=== PATIENT | male | born 1960 | race Caucasian/White ===

== ENCOUNTER 2023-12-23 22:16 | Inpatient (IN) | payer SELFPAY ==
[~2023-12-23] VITALS: Ht 172.7 cm; Wt 75.7 kg
[2023-12-23 23:45] VITALS: O2SAT 97
[2023-12-24] VITALS (19 sets, daily range): BP systolic 135–180; BP diastolic 80–104; PULSE 92–112; RESP 16–20; TEMP 97.6–98.6; O2SAT 94–97
[2023-12-24] MEDS: hydrALAZine 20MG/ML VIAL IM ONE (00:30)
[2023-12-24] MEDS: CEFTRIAXONE 2GM VIAL IVPB SCH (00:36)
[2023-12-24 00:40] LABS: ABG BASE EXCESS -2.5 mmol/L (-2.0-3.0); ABG HCO3 20.9 mmol/L (21.0-28.0); ABG PCO2 31 mmHg (35-48); ABG PH 7.444 (7.350-7.450); CARBON MONOXIDE 0.3 % (0.5-1.5); DEVICE COMMENT RR RN; PO2, ARTERIAL BG 103.7 mmHg (83.0-108.0); VENT MODE, BG 5LNC (ROOM AIR)
[2023-12-24] MEDS ORDERED: POTASSIUM CHLORIDE 20MEQ/100ML 100 ML IV PRN (02:00)
[2023-12-24] MEDS ORDERED: cefTRIAXone 1G VIAL 2 GM in 0.9%NACL 100ML 100 ML IV SCH (02:00)
[2023-12-24] MEDS ORDERED: acetaMINOPHEN 325 MG TAB PO PRN ×2 (02:00)
[2023-12-24] MEDS ORDERED: DEXTROSE 50%-WATER 50 ML DISP.SYRIN IV PRN (02:00)
[2023-12-24] MEDS ORDERED: GLUCAGON 1MG KIT 1 MG ML IM PRN (02:00)
[2023-12-24] MEDS ORDERED: guaiFENesin-DM 200/20MG 10ML PO PRN (02:00)
[2023-12-24] MEDS ORDERED: NITROGLYCERIN 0.4 MG SL TAB SL PRN (02:00)
[2023-12-24] MEDS ORDERED: ONDANSETRON 4MG INJ IV PRN (02:00)
[2023-12-24] MEDS: 0.9%NACL 1000ML 1,000 ML IV SCH (02:05)
[2023-12-24] MEDS: IpraTROPium/alBUTERol SULFATE 3 ML SOLUTION IH SCH (02:26)
[2023-12-24 02:34] LABS: BASOPHILS # (AUTO) 0.05 K/uL (0.00-0.20); BASOPHILS % (AUTO) 0.3 % (0.0-5.0); EOSINOPHILS # (AUTO) 0.04 K/uL (0.00-0.70); EOSINOPHILS % (AUTO) 0.2 % (0.0-8.0); HEMATOCRIT 25.9 % (42-54); IMMATURE GRANULOCYTE ABSOLUTE 0.21 K/uL (0-1); LYMPHOCYTES # (AUTO) 1.9 K/uL (1.0-4.8); LYMPHOCYTES % (AUTO) 11.2 % (21.0-51.0); MEAN CORPUSCULAR HEMOGLOBIN 34.5 pg (27.0-33.0); MEAN CORPUSCULAR HGB CONC 35.5 g/dL (32.0-36.0); MONOCYTES # (AUTO) 1.1 K/uL (0.1-1.0); MONOCYTES % (AUTO) 6.2 % (3.0-13.0); NEUTROPHILS # (AUTO) 13.8 K/uL (1.8-7.7); NEUTROPHILS % (AUTO) 80.9 % (40.0-77.0); PLATELET COUNT (AUTO) 339 K/uL (130-400); RED BLOOD CELL COUNT(AUTO) 2.67 MIL/uL (4.50-6.20); RED CELL DISTRIBUTION WIDTH 12.6 % (11.0-15.5)
[2023-12-24 02:51] LABS: B-TYPE NATRIURETIC PEPTIDE 117 pg/mL (0-100)
[2023-12-24 03:00] LABS: BAND NEUTROPHILS % (MANUAL) 3 % (0-2); LYMPHOCYTES % (MANUAL) 8 % (22-44); MAN.DIFF COMMENT-IMPRESSION MANUAL DIFFERENTIAL; MONOCYTES % (MANUAL) 4 % (2-9); SEGMENTED NEUTROPHILS % 85 % (40-70); TOTAL CELLS COUNTED 100
[2023-12-24 03:01] LABS: WBC MORPHOLOGY T
[2023-12-24 03:08] LABS: ALBUMIN 1.4 g/dL (3.5-5.0); BILIRUBIN,TOTAL 0.4 mg/dL (0.2-1.0); CREATININE 1.2 mg/dL (0.5-1.3); MAGNESIUM 1.3 mg/dL (1.80-2.40); PHOSPHORUS 3.3 mg/dL (2.5-4.9); THYROID STIMULATING HORMONE 0.6 uIU/mL (0.36-3.74); TOTAL PROTEIN, SERUM 5.5 g/dL (6.0-8.3)
[2023-12-24] MEDS: POTASSIUM CHLORIDE 10% ELIXIR 20 MEQ/15 ML UDCUP PO PRN (03:28)
[2023-12-24] MEDS: guaiFENesin SUGAR-FREE 100 MG/5 ML UDCUP PO ONE (03:34)
[2023-12-24] MEDS: guaiFENesin-DM 200/20MG 10ML PO PRN (03:37)
[2023-12-24 03:38] LABS: ERYTHROCYTE SEDIMENTATION RATE 145 MM/HR (0-20)
[2023-12-24] MEDS: AZITHROMYCIN 500MG+NS 250ML 250 ML IV SCH (04:15)
[2023-12-24] MEDS: INSULIN humuLIN R 100 UNIT/ML 3ML SQ SCH (05:52)
[2023-12-24] MEDS: BUDESONIDE 0.5 MG/2 ML INH IH SCH (06:31)
[2023-12-24] MEDS: FAMOTIDINE 20MG TAB PO SCH (09:19)
[2023-12-24] MEDS: ENOXAPARIN SODIUM 30 MG/0.3 ML SQ SCH (09:19)
[2023-12-24] MEDS: MAGNESIUM 2GM PREMIX 50ML 50 ML IV PRN (11:24)
[2023-12-24] MEDS: IBUPROFEN 600 MG TABLET PO PRN (11:42)
[2023-12-24] MEDS: amLODIPine 5 MG TAB PO ONE ×2 (14:00→16:06)
[2023-12-24] MEDS: KCL 20 MEQ ERTAB PO PRN (20:32)
[2023-12-24] MEDS: guaiFENesin-DM 200/20MG 10ML PO SCH (20:32)
[2023-12-24 20:46] LABS: COVID19 (SARS ANTIGEN RAPID) PRESUMPTIVE NEGATIVE (NEGATIVE); INFLUENZA TYPE A Negative For Type A (NEGATIVE); INFLUENZA TYPE B Negative For Type B (NEGATIVE)
[2023-12-24] MEDS: CYCLOBENZAPRINE HCL 10 MG TABLET PO SCH (21:30)
[2023-12-25] VITALS (16 sets, daily range): BP systolic 148–176; BP diastolic 73–97; PULSE 95–118; RESP 16–20; TEMP 97.2–98.4; O2SAT 94–98
[2023-12-25 06:18] LABS: BASOPHILS # (AUTO) 0.06 K/uL (0.00-0.20); BASOPHILS % (AUTO) 0.4 % (0.0-5.0); EOSINOPHILS # (AUTO) 0.15 K/uL (0.00-0.70); EOSINOPHILS % (AUTO) 1.1 % (0.0-8.0); HEMATOCRIT 26.8 % (42-54); IMMATURE GRANULOCYTE ABSOLUTE 0.41 K/uL (0-1); LYMPHOCYTES # (AUTO) 1.4 K/uL (1.0-4.8); LYMPHOCYTES % (AUTO) 9.7 % (21.0-51.0); MEAN CORPUSCULAR HEMOGLOBIN 34.3 pg (27.0-33.0); MEAN CORPUSCULAR HGB CONC 34.7 g/dL (32.0-36.0); MEAN CORPUSCULAR VOLUME 98.9 fL (79-99); MONOCYTES # (AUTO) 0.9 K/uL (0.1-1.0); MONOCYTES % (AUTO) 6.5 % (3.0-13.0); NEUTROPHILS # (AUTO) 11.2 K/uL (1.8-7.7); NEUTROPHILS % (AUTO) 79.4 % (40.0-77.0); PLATELET COUNT (AUTO) 379 K/uL (130-400); RED BLOOD CELL COUNT(AUTO) 2.71 MIL/uL (4.50-6.20); RED CELL DISTRIBUTION WIDTH 12.7 % (11.0-15.5); WHITE BLOOD COUNT (AUTO) 14.1 K/uL (4.8-10.8)
[2023-12-25 06:42] LABS: ALBUMIN 1.4 g/dL (3.5-5.0); BILIRUBIN,TOTAL 0.3 mg/dL (0.2-1.0); HEMOGLOBIN A1C 5.2 % (4.0-6.0); POTASSIUM 3.2 mmol/L (3.5-5.1); TOTAL PROTEIN, SERUM 5.9 g/dL (6.0-8.3)
[2023-12-25] MEDS ORDERED: CYCLOBENZAPRINE HCL 10 MG TABLET PO SCH (09:00)
[2023-12-25] MEDS: metoPROLOL tartRATE 25 MG TAB PO SCH (21:27)
[2023-12-26] VITALS (13 sets, daily range): BP systolic 149–166; BP diastolic 81–102; PULSE 89–102; RESP 16–20; TEMP 98.6–98.9; O2SAT 92–97
[2023-12-26 06:05] LABS: BASOPHILS # (AUTO) 0.06 K/uL (0.00-0.20); BASOPHILS % (AUTO) 0.5 % (0.0-5.0); EOSINOPHILS # (AUTO) 0.22 K/uL (0.00-0.70); EOSINOPHILS % (AUTO) 1.7 % (0.0-8.0); HEMATOCRIT 27.5 % (42-54); IMMATURE GRANULOCYTE ABSOLUTE 0.37 K/uL (0-1); LYMPHOCYTES # (AUTO) 1.4 K/uL (1.0-4.8); LYMPHOCYTES % (AUTO) 10.8 % (21.0-51.0); MEAN CORPUSCULAR HGB CONC 34.9 g/dL (32.0-36.0); MEAN CORPUSCULAR VOLUME 97.5 fL (79-99); MONOCYTES # (AUTO) 0.8 K/uL (0.1-1.0); MONOCYTES % (AUTO) 5.8 % (3.0-13.0); NEUTROPHILS # (AUTO) 10.3 K/uL (1.8-7.7); NEUTROPHILS % (AUTO) 78.4 % (40.0-77.0); PLATELET COUNT (AUTO) 443 K/uL (130-400); RED BLOOD CELL COUNT(AUTO) 2.82 MIL/uL (4.50-6.20); RED CELL DISTRIBUTION WIDTH 12.7 % (11.0-15.5); WHITE BLOOD COUNT (AUTO) 13.1 K/uL (4.8-10.8)
[2023-12-26 06:40] LABS: ALBUMIN 1.5 g/dL (3.5-5.0); BILIRUBIN,TOTAL 0.4 mg/dL (0.2-1.0); POTASSIUM 4.2 mmol/L (3.5-5.1); THYROID STIMULATING HORMONE 1.54 uIU/mL (0.36-3.74); TOTAL PROTEIN, SERUM 6.2 g/dL (6.0-8.3)
[2023-12-26] MEDS: LOPERAMIDE HCL 2 MG CAP PO ONE (13:34)
[2023-12-26] MEDS ORDERED: METO25 PO (17:29)
[2023-12-26] MEDS ORDERED: AMOX-427 PO (17:30)
[2023-12-26] MEDS ORDERED: metoPROLOL tartRATE 25 MG TAB PO SCH (21:00)
== END 2023-12-26 19:03 | disposition home or self-care (01) | DRG 871 ==
LOC: 3CH 23:27
PROVIDERS: ADMIT Hospitalist; ATTEND Hospitalist
DX: A41.9 Sepsis, unspecified organism (principal); J18.9 Pneumonia, unspecified organism; J96.01 Acute respiratory failure with hypoxia; E87.1 Hypo-osmolality and hyponatremia; Z20.822 Contact with and (suspected) exposure to COVID-19; D64.9 Anemia, unspecified; E83.42 Hypomagnesemia; E87.6 Hypokalemia; E87.70 Fluid overload, unspecified; E87.8 Other disorders of electrolyte and fluid balance, not elsewhere classified; F10.10 Alcohol abuse, uncomplicated; F17.210 Nicotine dependence, cigarettes, uncomplicated; I10 Essential (primary) hypertension; Z79.899 Other long term (current) drug therapy
CPT/HCPCS: 36415; 36600; 71045; 80053; 82435; 82803; 82947; 82948; 83036; 83605; 83735; 83880; 84100; 84132; 84145; 84295; 84443; 84484; 85018; 85025; 85651; 86140; 87071; 87205; 87426; 87449; 87804; 93005; 93306; 94640; 94664; G0378; J0456; J0696; J1650; J3475